=== PATIENT | male | born 1950 | race Caucasian/White ===

== ENCOUNTER 2017-05-03 20:14 | Emergency (ER) | payer BC ==
--- NOTE | 2017-05-03 20:23 | PDOC ---
Rapid Medical Evaluation Chief Complaint: Lightheaded Time Seen by Provider: 05/03/17 20:17 Medical Evaluation: 05/03/17 20:18 I have performed a brief in-person evaluation of this patient. The patient presents with a chief complaint of: syncope, "was dizzy while urinating, then found myself on the floor, my neck and R arm was hurting and i think i hit my face", has had lightheadedness in past but never passed out before Pertinent physical exam findings: pale, erythema to nose/forehead, FROM to R extremity I have ordered the following: head/cspine/facial bone CT, R shoulder x-ray. ekg The patient will proceed to the ED for further evaluation. Discharge Disposition - Diagnosis Micturition syncope - Referrals - Patient Instructions - Post Discharge Activity
[2017-05-03 20:24] VITALS: BP 135/89; PULSE 88; TEMP 97.4; BMI 27.6
--- NOTE | 2017-05-03 22:56 | PDOC ---
History of Present Illness - General Chief Complaint: Syncope/Near Syncope Stated Complaint: DIZZINESS/LIGHTHEADED Time Seen by Provider: 05/03/17 20:17 - History of Present Illness Initial Comments: 67 year old male with hypercholesterolemia and BPH presenting with syncopal episode during maturation. Patient was peeing in his bathroom, standing, and shortly after initiation of urination he felt weak and his heart rate slowing. He then syncopized, falling and hitting his face, right shoulder, and head. He woke up in his urine and called his sister who lives above him. She came down and helped him up then called EMS. He had no post-ictal period, tongue lacerations, or other signs of seizure. The patient has not syncopized before. He is otherwise very active and healthy. He denies any syncopal prodrome such as palpitations, diaphoresis, chest pain, or SOB. His only complaint now is some right arm residual tingling that was much worse when he initially woke up but has improved, and some light facial pain. Denies fevers, chills, nausea, vomiting, diarrhea, SOB, chest pain, headache, constipation, or other sick symptoms. 05/03/17 22:40 Past History - Past Medical History Allergies/Adverse Reactions: Allergies Allergy/AdvReac Type Severity Reaction Status Date / Time No Known Allergies Allergy Verified 05/03/17 20:19 Home Medications: Ambulatory Orders Ezetimibe 10 mg PO DAILY 05/03/17 Fenofibrate,Micronized [Fenofibrate] 134 mg PO DAILY 05/03/17 Tamsulosin HCl [Flomax] 0.4 mg PO DAILY 05/03/17 COPD: No Hypercholesterolemia: Yes Other medical history: Prostate problems - Suicide/Smoking/Psychosocial Hx Smoking History: Former smoker Have you smoked in the past 12 months: No Information on smoking cessation initiated: No Hx Alcohol Use: No Drug/Substance Use Hx: No Review of Systems - Review of Systems Constitutional: No: Chills, Diaphoresis, Fever, Loss of Appetite HEENTM: No: Eye Pain, Blurred Vision Respiratory: No: Cough, Orthopnea, Shortness of Breath Cardiac (ROS): Yes: Syncope. No: Chest Pain, Irregular Heart Rate, Chest Tightness ABD/GI: No: Diarrhea, Nausea, Vomiting : No: Dysuria, Discharge, Frequency Musculoskeletal: No: Joint Pain, Joint Swelling, Muscle Pain Integumentary: Yes: Erythema. No: Bruising, Lesions, Rash Neurological: No: Headache, Numbness, Paresthesia *Physical Exam - Vital Signs Last Vital Signs Temp Pulse Resp BP Pulse Ox 97.4 F L 88 18 135/89 98 05/03/17 20:19 05/03/17 20:19 05/03/17 20:19 05/03/17 20:19 05/03/17 20:19 - Physical Exam General Appearance: Yes: Nourished, Appropriately Dressed. No: Apparent Distress HEENT: positive: EOMI, ABDULAZIZ, Normal Voice. negative: Normal ENT Inspection ( Some erythema over the forehad and bridge of his nose.) Neck: positive: Trachea midline, Normal Thyroid, Supple. negative: Tender, Rigid Respiratory/Chest: positive: Lungs Clear, Normal Breath Sounds. negative: Chest Tender, Respiratory Distress Cardiovascular: positive: Regular Rhythm, Regular Rate Gastrointestinal/Abdominal: positive: Normal Bowel Sounds, Flat, Soft. negative : Tender Musculoskeletal: positive: Normal Inspection, Other (No shoulder tenderness with sensation intact bilaterally.). negative: CVA Tenderness Extremity: positive: Normal Capillary Refill, Normal Inspection, Normal Range of Motion. 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 Patietn was intiating micturation when he felt the symptoms and did not have any typical prodrome symptoms for pure caridac syncope. He also has no risk factors and is otherwise healthy. He has no MSK tenderness. Labs, EKG, and imaging do not show any acute fracture or concernign pathology. The CT spien did reveal some old degneerative c-sine changes and a non symptomatic AC separation in his right shoulder. The chronicity of this separation is questionable as the patient does not admit to any pain. We discharged the patient with return precautions and follow up with Dr. Wallace for C-spine and shoulder evaluation. 05/04/17 02:45 *DC/Admit/Observation/Transfer Diagnosis at time of Disposition: Micturition syncope - Discharge Dispostion Disposition: HOME Condition at time of disposition: Improved Admit: No - Referrals Referrals: Manuel Wallace MD [Staff Physician] - - Patient Instructions Additional Instructions: You likely fainted because of a vasovagal syncope while urinating. This is a known phenomenon sometimes while urinating or having a bowel movement. Your imaging demonstrated a small separation of your right shoulder that may be old. There are also some old degeneration of your neck that could be causing your symptoms. Please follow up with the orthopedic surgeon on this form as early as you can to have your neck and shoulder evaluated. Please return to the ED if you have the same symptoms again. Please follow up with your primary care physician within the next few days for further evaluation. Please be careful while peeing and using the bathroom until then. Please stay very well hydrated. - Post Discharge Activity
--- NOTE | 2017-05-03 23:00 | PDOC ---
Attending Attestation - HPI HPI: 05/03/17 23:05 The patient is a 67 year old male, with a significant past medical history of BPH and hypercholesterolemia, who presents to the emergency department s/p possible syncope during urination around 9PM this evening. The patient reports that shortly after initiating urination he became to experience lightheadedness , generalized weakness, and heart beat slowing down. He states the next thing he remembers is waking up on the floor with headahce, sore neck and shoulders. He states his sister found him looking disoriented, but denied diaphoresis or shortness of breath. The patient denies chest pain, shortness of breath, headache and dizziness. The patient denies fever, chills, nausea, vomit, diarrhea and constipation. The patient denies dysuria, frequency, urgency and hematuria. Allergies: NKDA - Medical Decision Making 05/03/17 23:05 Documentation prepared by Ruba Yo, acting as medical van driver for Olman Reed DO. <Ruba Yo - Last Filed: 05/03/17 23:05> - Resident Resident Name: Juan Liao - ED Attending Attestation I have performed the following: I have examined & evaluated the patient, The case was reviewed & discussed with the resident, I agree w/resident's findings & plan, Exceptions are as noted - Physicial Exam PE: 05/04/17 00:46 Physical Exam General Appearance: Yes: Appropriately Dressed. No: Apparent Distress, Intoxicated HEENT: positive: EOMI, ABDULAZIZ, Normal ENT Inspection, Normal Voice, TMs Normal, Pharynx Normal. negative: Pale Conjunctivae, Photophobia, Scleral Icterus (R), Scleral Icterus (L) Neck: positive: Trachea midline, Normal Thyroid, Supple. negative: Tender, Rigid, Carotid bruit, Stridor, Lymphadenopathy (R), Lymphadenopathy (L), Thyromegaly Respiratory/Chest: positive: Lungs Clear, Normal Breath Sounds. negative: Chest Tender, Respiratory Distress, Accessory Muscle Use, Labored Respiration, RES, Crackles, Rales, Rhonchi, Stridor, Wheezing, Dullness Cardiovascular: positive: Regular Rhythm, Regular Rate, S1, S2. negative: Edema , JVD, Murmur, Bradycardia, Tachycardia Vascular Pulses: Dorsalis-Pedis (R): 2+, Doralis-Pedis (L): 2+ Gastrointestinal/Abdominal: positive: Normal Bowel Sounds, Flat, Soft. negative : Tender, Organomegaly, Pulsatile Mass, Increased Bowel Sounds, Decreased BS, Distended, Guarding, Rebound, Hernia, Hepatomegaly, Spleenomegaly Lymphatic: negative: Adenopathy, Tenderness Musculoskeletal: positive: Normal Inspection. negative: CVA Tenderness, Decreased Range of Motion Extremity: positive: Normal Capillary Refill, Normal Inspection, Normal Range of Motion, Pelvis Stable. negative: Tender, Pedal Edema, Swelling, Erythema Integumentary: positive: Normal Color, Dry, Warm. 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 negative: EOM Palsy, Facial Droop, Sensory Deficit - Medical Decision Making 05/04/17 00:47 Pt treated and released. <Olman Reed - Last Filed: 05/04/17 00:47>
[2017-05-03 23:48] LABS: BASO % 0.8 % (0-2.0); EOS % 1.1 % (0-4.5); HEMATOCRIT 42.9 % (35.4-49); HEMOGLOBIN 14.6 GM/dL (11.7-16.9); MCH 31.1 pg (25.7-33.7); MEAN CELL VOLUME 91.7 fl (80-96); MEAN PLT VOLUME 8.9 fl (7.5-11.1); MONO % 11.1 % (3.8-10.2); PLATELET COUNT 180 K/MM3 (134-434); RBC 4.68 M/mm3 (4.00-5.60); RDW 13.3 % (11.9-15.9)
[2017-05-04 00:28] LABS: ALBUMIN 4.6 g/dl (3.4-5.0); ANION GAP 5 (8-16); BILIRUBIN,TOTAL 0.6 mg/dL (0.2-1.0); BLOOD UREA NITROGEN 14 mg/dL (7-18); CHLORIDE 105 mmol/L (98-107); CO2 32 mmol/L (21-32); CREATININE 1.2 mg/dL (0.7-1.3); GLUCOSE,RANDOM 88 mg/dL (74-106); MAGNESIUM 2.2 mg/dL (1.8-2.4); PHOSPHOROUS 2.8 mg/dL (2.5-4.9); POTASSIUM 4.2 mmol/L (3.5-5.1); SGOT/AST 17 U/L (15-37); SGPT/ALT 27 U/L (12-78); SODIUM 142 mmol/L (136-145); TOT PROT 7.8 g/dl (6.4-8.2)
[2017-05-04 00:31] LABS: ALK PHOS 59 U/L (45-117)
--- NOTE | 2017-05-04 14:12 | EKG ---
Test Reason : Blood Pressure : / mmHG Vent. Rate : 073 BPM Atrial Rate : 073 BPM P-R Int : 176 ms QRS Dur : 106 ms QT Int : 376 ms P-R-T Axes : 054 -03 030 degrees QTc Int : 414 ms NORMAL SINUS RHYTHM NONSPECIFIC INTRAVENTRICULAR CONDUCTION DEFECT NO PREVIOUS ECGS AVAILABLE Confirmed by ARACELY MEEKS MD ([id number]) on 05/04/2017 2:12:25 PM Referred By: Confirmed By:ARACELY MEEKS MD
== END 2017-05-04 00:57 | disposition home or self-care (01) ==
LOC: JER 20:14
DX: R55 Syncope and collapse (principal); R39.198 Other difficulties with micturition; S09.8XXA Other specified injuries of head, initial encounter; S49.81XA Other specified injuries of right shoulder and upper arm, initial encounter; W18.39XA Other fall on same level, initial encounter; Y93.89 Activity, other specified; Y92.031 Bathroom in apartment as the place of occurrence of the external cause
CPT/HCPCS: 36415; 70450-TC; 70486-TC; 72125-TC; 73030-TC-RT-FY; 80053; 82550; 82553; 83735; 84100; 84484; 85025; 93005; 93010; 99281-25